=== PATIENT | female | born 1980 | race Caucasian/White ===

== ENCOUNTER 2021-06-05 10:49 | Emergency (ER) | payer MEDICAID ==
[~2021-06-05] VITALS: Ht 152.4 cm; Wt 62.0 kg
[2021-06-05] MEDS ORDERED: IBUPROFEN 600MG TABLET PO ONE (12:15)
[2021-06-05 12:55] VITALS: BP 136/73
[2021-06-05] MEDS ORDERED: IBUP-2030 MT (13:05)
== END 2021-06-05 14:11 | disposition home or self-care (01) ==
LOC: ER 10:49
DX: S52.591A Other fractures of lower end of right radius, initial encounter for closed fracture (principal); W22.8XXA Striking against or struck by other objects, initial encounter; Y93.89 Activity, other specified; Y92.89 Other specified places as the place of occurrence of the external cause; Y99.8 Other external cause status; Z98.890 Other specified postprocedural states
CPT/HCPCS: 29125; 73110; 81025; 99283

== ENCOUNTER 2023-04-22 11:42 | Emergency (ER) | payer SELFPAY ==
[~2023-04-22] VITALS: Ht 152.4 cm; Wt 65.0 kg
[~2023-04-22 11:42] MED LIST: IBUP-2030 MT
[2023-04-22 11:51] VITALS: BP 109/37; TEMP 98.4; O2SAT 99
[2023-04-22 12:28] LABS: CLARITY URINE CLEAR (CLEAR); COLOR URINE RED (YELLOW); GLUCOSE URINE NEGATIVE (NEGATIVE); KETONES URINE NEGATIVE (NEGATIVE); LEUKOCYTE ESTERASE URINE 1+ (NEGATIVE); NITRITE URINE NEGATIVE (NEGATIVE); OCCULT BLOOD URINE 3+ (NEGATIVE); PH URINE 5.5 (4.5-8.0); PROTEIN URINE 1+ (NEGATIVE); SPECIFIC GRAVITY URINE 1.006 (1.005-1.030); UROBILINOGEN URINE 0.2 E.U./dL (0.2-1.0)
[2023-04-22 13:02] LABS: RBC URINE 50-100 /hpf (0-2); SQUAMOUS EPITHELIAL CELL URINE 1+ /lpf (RARE/1+)
[2023-04-22 13:05] LABS: BACTERIA URINE TRACE
[2023-04-22] MEDS ORDERED: MECL-264 PO (14:58)
[2023-04-22] MEDS ORDERED: IBUP-1523 MT (14:58)
[2023-04-22] MEDS ORDERED: TOPUD MT (14:58)
[2023-04-22] MEDS ORDERED: AZIT250T12 MT (14:58)
[2023-04-22 15:36] VITALS: PULSE 71; RESP 16
== END 2023-04-22 15:37 | disposition home or self-care (01) ==
LOC: ER 11:42
DX: J32.9 Chronic sinusitis, unspecified (principal); R42 Dizziness and giddiness; Z98.890 Other specified postprocedural states
CPT/HCPCS: 81003; 81025; 99283